=== PATIENT | female | born 1995 | race Caucasian/White ===

== ENCOUNTER 2018-02-02 01:03 | Emergency (ER) | payer OTHER, BC ==
--- NOTE | 2018-02-02 01:34 | ED ---
Skin Complaint - HPI Summary HPI Summary: Pt. is a 22 y.o female who presents to the ER for evaluation of frequent bruising. Past medical hx of PCOS, depression, and ADHD. Pt. is a student at [employer]. Pt. states over the last few weeks to months she has noticed atraumatic bruising. She denies epistaxis or easy bleeding to gums. Pt. states she noticed a bruise to her right lower leg tonight and called [facility] and was instructed to come to the ER. Pt. does not recall any recent injuries. Symptoms are mild in severity. No current modifying factors. She otherwise denies recent illness, fever, cought, URI sxs. - History of Current Complaint Chief Complaint: EDGeneral Time Seen by Provider: 02/02/18 01:33 Stated Complaint: UNEXPLAINED BRUISING Hx Obtained From: Patient Pain Intensity: 0 - Allergy/Home Medications Allergies/Adverse Reactions: Allergies Allergy/AdvReac Type Severity Reaction Status Date / Time No Known Allergies Allergy Verified 02/02/18 01:09 Home Medications: Home Medications PARoxetine HCL TAB* 12.5 mg PO DAILY 02/02/18 [History Confirmed 02/02/18] PARoxetine HCL TAB* 37.5 mg PO DAILY 02/02/18 [History Confirmed 02/02/18] Wellbutrin XL * 100 mg PO DAILY 02/02/18 [History Confirmed 02/02/18] PMH/Surg Hx/FS Hx/Imm Hx Previously Healthy: Yes Infectious Disease History: No Infectious Disease History: Denies: Traveled Outside the [place] in Last 30 Days - Social History Occupation: Student Lives: Dormitory/Roommates Alcohol Use: None Substance Use Type: Reports: None Smoking Status (MU): Never Smoked Tobacco Review of Systems Constitutional: Negative Negative: Fever, Chills Eyes: Negative ENT: Negative Negative: Epistaxis Cardiovascular: Negative Respiratory: Negative Gastrointestinal: Negative Positive: Bruising Neurological: Negative All Other Systems Reviewed And Are Negative: Yes Physical Exam Triage Information Reviewed: Yes Vital Signs On Initial Exam: Initial Vitals Temp Pulse Resp BP Pulse Ox 97.2 F 82 16 122/85 97 02/02/18 01:06 02/02/18 01:06 02/02/18 01:06 02/02/18 01:06 02/02/18 01:06 Vital Signs Reviewed: Yes Appearance: Positive: Well-Appearing - Pt. sitting on bed in NAD. Skin: Positive: Warm, Dry, Other - Bruise to right lower leg as noted below. No petechia. Head/Face: Positive: Normal Head/Face Inspection Eyes: Positive: Normal, EOMI, JASON, Conjunctiva Clear ENT: Positive: Pharynx normal, TMs normal Neck: Positive: Supple Respiratory/Lung Sounds: Positive: Clear to Auscultation, Breath Sounds Present Cardiovascular: Positive: Normal, RRR Musculoskeletal: Positive: Other - Small area of bruising noted to the right lower lateral aspect of right leg. No calf pain or swelling. No bony tenderness. Neurological: Positive: Normal, CN Intact II-III Psychiatric: Positive: Affect/Mood Appropriate Diagnostics - Vital Signs Vital Signs Temp Pulse Resp BP Pulse Ox 02/02/18 01:06 97.2 F 82 16 122/85 97 - Laboratory Result Diagrams: 02/02/18 01:46 02/02/18 01:46 Lab Statement: Any lab studies that have been ordered have been reviewed, and results considered in the medical decision making process. Course/Dx - Course Course Of Treatment: Pt. presenting for evaluation of frequent bruising. No other complaints. Afebrile with stable vs. Will check basic labs. Blood work is unremarkable. Results discussed. Recommend pt. call [facility] tomorrow to schedule a follow up appointment for further evaluation. To return to ER if sxs change or worsen. Pt. understands and agrees with plan. - Differential Diagnoses - Skin Complaint Differential Diagnoses: Drug Rash, Eczema, Erythema Nodosum, Erythema Multiforme - Diagnoses Provider Diagnoses: Bruise Discharge - Sign-Out/Discharge Documenting (check all that apply): Patient Departure - Discharge Plan Condition: Good Disposition: HOME Patient Education Materials: Contusion in Adults (ED) Referrals: [facility] [Outside] Additional Instructions: Call [facility] tomorrow to schedule a follow up appointment Return to ER if symptoms change or worsen - Billing Disposition and Condition Condition: GOOD Disposition: Home
[2018-02-02 01:54] LABS: ABS Basophils 0 10^3/ul (0-0.2); ABS Eosinophils 0.1 10^3/ul (0-0.6); ABS Lymphocytes 2.8 10^3/ul (1.0-4.8); ABS Monocytes 0.7 10^3/ul (0-0.8); ABS Neutrophils 3.2 10^3/ul (1.5-7.7); ABS Nucleated RBC 0 10^3/ul; Eosinophil % 1.4 % (0-6); Hematocrit 40 % (35-47); Hemoglobin 13.7 g/dl (12.0-16.0); Mean Corpuscular HGB Conc 34 g/dl (31-36); Mean Corpuscular Hemoglobin 30 pg (27-31); Mean Corpuscular Volume 87 fL (80-97); Mean Platelet Volume 7.1 fL (7.4-10.4); Nucleated Red Blood Cells % 0.1; Platelet Count 349 10^3/ul (150-450); Red Blood Count 4.62 10^6/ul (4.00-5.40); Red Cell Distribution Width 14 % (10.5-15); White Blood Count 6.8 10^3/ul (3.5-10.8)
[2018-02-02 02:27] VITALS: BP 145/98
== END 2018-02-02 02:26 | disposition home or self-care (01) ==
LOC: ED 01:03
DX: S80.11XA Contusion of right lower leg, initial encounter (principal); X58.XXXA Exposure to other specified factors, initial encounter; Y92.9 Unspecified place or not applicable
CPT/HCPCS: 36415; 80053; 85025; 85730; 99282